=== PATIENT | male | born 1940 | race Caucasian/White ===

== ENCOUNTER → 2019-09-19 11:23 | Outpatient (CLI) | payer MEDICARE, OTHER, SELFPAY ==
[2019-09-20 08:06] LABS: COVID19 Sendout Not Detected (Not Detect)
== END ==
PROVIDERS: Visit Provider Physician Assistant
DX: Z01.812 Encounter for preprocedural laboratory examination (principal)
CPT/HCPCS: 87635

== ENCOUNTER 2019-09-22 06:11 | Day surgery (SDC) | payer MEDICARE, OTHER, SELFPAY ==
[2019-09-18 08:03] VITALS: BMI 25.8
[2019-09-22] VITALS (10 sets, daily range): BP systolic 94–132; BP diastolic 47–84; PULSE 51–62; RESP 10–16; TEMP 35.7–36.3; O2SAT 93–97; BMI 25.1
--- NOTE | 2019-09-22 | DI.RAD.S_ITS ---
PROCEDURE: XR ANKLE LT MIN 3V INDICATIONS: LEFT ANKLE FUSION TECHNIQUE: Five views of the ankle were acquired. COMPARISON: Left ankle radiographs dated 07/24/2019 performed at [facility]. FINDINGS: Bones: Spot fluoroscopic image demonstrate interval subtalar fusion surgery with placement of 3 cannulated screws projecting across the subtalar joint. Additional surgical hardware is partially imaged in the distal fibula and tibia and across the mortise joint in stable position. There has been interval resection of the lateral malleolus when compared to the prior radiographs from 07/24/2019. Soft tissues: Expected soft tissue edema is seen surrounding the ankle. IMPRESSION: Interval postsurgical changes including subtalar fusion and resection of the fibular head as described above. Dictated by: Ayad Maradiaga M.D. on 09/22/2019 at 11:47 Approved by: Ayad Maradiaga M.D. on 09/22/2019 at 11:55
[2019-09-22] MEDS: LACTATED RINGERS 1,000 ML 42 ML IV ×2 (07:14→10:24)
--- NOTE | 2019-09-22 07:27 | PM.PREOP ---
Pre-operative Note COVID-19 COVID-19 status: Negative Result date/Date tested (Pos, Neg/Pending): 09/19/19 Interval Note History & Physical reviewed/Exam performed by Physician: Yes Changes to H&P: No
[2019-09-22] MEDS: CEFAZOLIN 2 GM/100 ML FROZ.PIGGY IV (07:47)
--- NOTE | 2019-09-22 07:50 | SUR.PREOP ---
Block start time [0740] . Monitoring initiated and maintained throughout procedure. Oxygen and medications given per anesthesiologist instructions. Patient remained stable throughout procedure, no adverse reactions noted. Block end time [0747].
--- NOTE | 2019-09-22 08:27 | SUR.OPER ---
Lateral on padded OR bed, head on pillow, gel axillary roll in place, bottom leg bent with gel pad under knee to foot, upper leg straight and supported with pillows. Upper arm supported by pillows and secured over bottom arm to padded arm board. Safety belt at hip, tape over blanket lower legs.
[2019-09-22] MEDS: BUPIVACAINE 0.25% W/ EPI 30 ML VIAL INJ (08:37)
--- NOTE | 2019-09-22 08:40 | PM.PROC.1 ---
Procedures Date/Time Date of procedure: 09/22/19 Time of procedure: 07:40 Nerve Block Time out performed: Yes Local anesthetic used: other (5mL 2% Lidocaine, 15mL 0.5% Ropivacaine) Location of anesthetic used: lateral popliteal Amount of anesthesia used (mL): 20 Nerve blocks: other (sciatic nerve) Procedure successful: Yes Patient tolerated procedure: well Complications: none Additional comments: LEFT Ultrasound guided lateral popliteal sciatic nerve block for post operative pain management, as discussed with surgeon. Risks, benefits discussed with patient and spouse. Consent verified. Site marked by surgeon. Time out performed. Standard ASA monitors applied, NC O2, 2mg versed. Pt supine. Chloroprep. Sterile US sleeve and gel. Sciatic nerve identified proximal to popliteal fossa, at bifurcation. Lidocaine local skin wheal. 100mm x 21g Pajunk needle advanced with in-plane US guidance to nerve. Negative aspiration. 5mL 2% lidocaine and 15mL 0.5% ropivacaine injected with intermittent negative aspiration. Good LA spread noted on US. No pain, no paresthesias. VSS. Tolerated well.
[2019-09-22] MEDS: ACETAMINOPHEN IV 1,000 MG/100 ML VIAL 400 MG IV (09:00)
[2019-09-22] MEDS: OXYCODONE IR 5 MG TABLET PO (11:28)
--- NOTE | 2019-09-22 11:48 | PM.OP.1 ---
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 He also has significant subtalar impingement and large distal osteophytes at the subtalar joint and distal fibula. He has failed conservative treatment and desires operative fixation. The risks and benefits of the procedure have been discussed with the patient even opportunity to ask questions. The risks of surgery include but are not limited to infection, malunion, nonunion, persistence of pain, damage to nerves and blood vessels, posttraumatic arthritis, DVT, PE, cardiopulmonary complications and . The patient expressed a thorough understanding of the risks and benefits of surgery and has elected to proceed. Consent was signed in the office. He has no history of DVT will take aspirin for DVT prophylaxis postoperatively. Surgeon: Geraldine Song Spinneret Cleaner: Leslie Meyer Anesthesia Type: General, Peripheral nerve block and Local (Patient had a peripheral nerve block placed by the anesthesia team for postoperative pain control) Operative Notes Findings: Subtalar arthritis extensive, large lateral osteophytes severely tendinotic and tearing the peroneal tendons. Solid ankle fusion. Closure Type: primary Specimen(s): none sent Prosthetic devices, grafts, tissues, transplants, or devices: Arthrex 6.7 cannulated screws 105 mm, 120 mm. Long thread Arthrex 4.5 cannulated screw full thread 60 mm Applied: other (Splint) Estimated Blood Loss (mL): 75 Blood products transfused: none Tourniquet time (min): 103 Procedure in detail: Patient was seen in the preoperative area the site of surgery marked informed consent confirmed. The patient was taken to the block room and a block was placed by the anesthesia team for postoperative pain control. The patient was then brought to the operating room general anesthesia was administered. The patient was positioned lateral on the beanbag. An axillary bump was placed. All bony prominences well-padded. Well-padded thigh tourniquet was placed. An SCD was placed on the contralateral lower extremity. The left lower extremities prepped and draped in the standard sterile fashion a formal time-out procedure was performed confirming the patient's side and site of surgery administration of appropriate preoperative antibiotics. All were in agreement. Implants were in the room accounted for. Hindfoot arthrodesis. An incision was made starting at the distal aspect of the previous fibular incision and does stretching it towards the base of the 4th metatarsal. Dissection was carried through the skin subcutaneous tissue. This was taken down directly over the fibula proximally and over the extensor digitorum brevis distally. Subperiosteal dissection was completed. The peroneal tendons were severely tendinotic and torn these were excised. A osteotomy was made just at the level below the plate on the distal fibula with the TTS saw and the distal fibula was osteotomized and then removed. This was later crushed and used for autologous bone graft. This exposed the lateral aspect of the sinus tarsi subtalar joint and ankle joint. The ankle was noted to be in a solid fusion. The lateral screw for the ankle fusion was and not easily palpated therefore was left alone. The large osteophytes at the subtalar joint were resected. The subtalar joint was then mobilized. This was extensively arthritic with eburnated bone. The Synthes joint prep set was used for joint prep with the osteotomes and curette. Once we had good cancellous surfaces and a normal shape and contour of the joints this was then further prepared using the 4 0 bur and then the 2 5 drill bit. An osteotome was then used to fish scale the subtalar joint overall facets. Next the autologous bone graft was placed. The joint was reduced and pinned provisionally with the wires for the cannulated screws. This was checked under fluoroscopic imaging. Once were satisfied with the alignment the screws were placed. 6.7 Arthrex I cannulated long thread screws were selected this was placed on from bottom to top and top to bottom for compression. An additional anterior 4.5 screw was placed from the anterior calcaneus into the talar head. Alignment was checked under fluoroscopic imaging was appropriate and a solid rigid hindfoot was obtained. The remainder of the bone graft was then packed into the sinus tarsi. K-wires removed. The tourniquet was released. Hemostasis was achieved. There was small amount of oozing therefore Hemovac drain was placed this will be evaluated in the postoperative unit and likely pulled prior to discharge versus on postoperative day 1. Irrigation was completed. The wound was closed in layers with a 2 O Vicryl, 4 0 Monocryl and 3 O into nylon. Stab incisions for the cannulated screws were closed with 3 0 nylon suture. Sterile dressing with Xeroform gauze Webril bulky Royal cotton and a posterior and stirrup splint were placed. All counts were correct. Patient was woken from anesthesia and taken to recovery unit in good condition. There no immediate complications from this procedure. Complications: none Post-operative Condition: stable Disposition: PACU Plan for aftercare: Nonweightbearing left lower extremity. Elevate above the heart level for 2 weeks after surgery. Start aspirin postoperative day 1 for DVT prophylaxis. All of oxycodone for pain control.
--- NOTE | 2019-09-22 13:46 | SUR.PHASEII ---
Educated pt and on drain care. They watched me empty drain 1x and i watched empty it a second time. Instructed on how to remove drain in the morning per discussion with MD. instructions written down for pt. Pt states he took all belongings with him. left in w/c with escort to car with his .
== END 2019-09-22 13:30 | disposition home or self-care (01) ==
PROVIDERS: PCP Family Medicine; Referring Provider Orthopaedic Surgery Foot and Ankle Surgery; Visit Provider Orthopaedic Surgery Foot and Ankle Surgery
PROC: (CPT 27870; principal; 2019-09-22 07:45)
DX: M19.172 Post-traumatic osteoarthritis, left ankle and foot (principal); S92.102 Unspecified fracture of left talus; M72.2 Plantar fascial fibromatosis; M25.775 Osteophyte, left foot; M25.872 Other specified joint disorders, left ankle and foot; I10 Essential (primary) hypertension
CPT/HCPCS: 29907; 27707; 64450; 73610; 76000; J0131; J0690; J1100; J2250; J2405; J2704; J3010